=== PATIENT | female | born 1990 | race Two or more races ===

== ENCOUNTER 2022-06-13 20:45 | Emergency (ER) | payer MEDICAID, OTHER ==
[~2022-06-13] VITALS: Ht 167.6 cm; Wt 90.5 kg
[2022-06-13] MEDS ORDERED: IOHEXOL 350 MG/ML 100ML IJ ONE (22:05)
[2022-06-13] MEDS ORDERED: MORPHINE SULFATE 4 MG/ML SYR/VIAL IM ONE (23:45)
[2022-06-14] MEDS ORDERED: MORPHINE SULFATE 4 MG/ML SYR/VIAL IM ONE
[2022-06-14 00:12] LABS: Basophils # (auto) 0 10 ^3/uL (0-0.2); Basophils % (auto) 0.2 % (0.0-2.0); Eosinophils # (auto) 0 10 ^3/uL (0-0.8); Mean Corpuscular Volume 78.9 fL (80.0-100.0); Monocytes # (auto) 1.6 10 ^3/uL (0-1.3)
[2022-06-14 00:13] LABS: Hematocrit 36.1 % (36.0-46.0); Hemoglobin 11.7 g/dL (12.2-16.2); Lymphocytes % (auto) 5.3 % (10.0-50.0); Mean Corpuscular Hemoglobin 25.5 pg (28.0-32.0); Mean Corpuscular Hgb Conc. 32.3 g/dL (32.0-36.0); Monocytes % (auto) 8.1 % (0.0-12.0); Neutrophils % (auto) 86.4 % (37.0-80.0); Red Blood Cells 4.57 10^6/uL (4.0-5.20); Red Cell Distribution Width 16.5 % (11.8-14.3); White Blood Cell 19.7 10^3/uL (4.4-10.8)
[2022-06-14 00:29] LABS: Albumin 3.6 g/dL (3.4-5.0); BUN/Creatinine Ratio 16.1; Calcium 8.6 mg/dL (8.5-10.1); Potassium 3.7 mmol/L (3.5-5.1)
[2022-06-14 00:38] LABS: Bilirubin, Total 0.5 mg/dL (0.2-1.0); Total Protein 7.5 g/dL (6.4-8.2)
[2022-06-14] MEDS ORDERED: ONDANSETRON ODT 4 MG TAB PO ONE (02:45)
[2022-06-14 03:34] VITALS: BP 100/59
== END 2022-06-14 04:07 | disposition short-term general hospital (02) ==
LOC: EDBD 20:45 → ER 20:48
DX: S22.080A Wedge compression fracture of T11-T12 vertebra, initial encounter for closed fracture (principal); S82.402A Unspecified fracture of shaft of left fibula, initial encounter for closed fracture; R10.2 Pelvic and perineal pain; F17.210 Nicotine dependence, cigarettes, uncomplicated; V26 Motorcycle rider injured in collision with other nonmotor vehicle; Y93.89 Activity, other specified; Y92.410 Unspecified street and highway as the place of occurrence of the external cause; Y99.8 Other external cause status
CPT/HCPCS: 12005; 29505; 36415; 70450; 71250; 72125; 72128; 72131; 73590; 73700; 74176; 80053; 84702; 85025; 96372; 99285; J2270; Q0162; Q9967